=== PATIENT | female | born 1940 | race African-American/Black ===

== ENCOUNTER → 2017-10-19 15:42 | Outpatient (CLI) | payer MEDICARE, BC | END | disposition home or self-care (01) | LOC: D.MAMMO 11:45 | DX: Z12.31 Encounter for screening mammogram for malignant neoplasm of breast (principal) ==

== ENCOUNTER → 2018-12-12 13:23 | Outpatient (CLI) | payer MEDICARE, BC | END | disposition home or self-care (01) | LOC: D.RAD 13:23 | DX: R05 Cough (principal) ==

== ENCOUNTER → 2018-12-21 09:27 | Outpatient (CLI) | payer MEDICARE, BC | END | disposition home or self-care (01) | LOC: D.RAD 09:27 | DX: K22.70 Barrett's esophagus without dysplasia (principal) ==

== ENCOUNTER 2019-07-11 11:48 | Day surgery (SDC) | payer MEDICARE, BC ==
[~2019-07-11] VITALS: Ht 170.2 cm; Wt 72.7 kg
[2019-07-11 12:03] LABS: HEMATOCRIT 38.5 % (36.0-48.0); HEMOGLOBIN 12.9 g/dL (12-16); MCH 28.9 pg (26.0-34.0); MCHC 33.5 g/dL (31.0-37.0); MCV 86.1 fL (80.0-100.0); RBC 4.47 10x6/uL (4.00-5.40); RDW 15.2 % (11.5-14.5); WBC 3.7 10x3/uL (4.8-10.8)
[2019-07-11] MEDS ORDERED: ZOCOR20 MG PO (13:38)
[2019-07-11] MEDS ORDERED: COZAAR25 MG PO (13:38)
[2019-07-11] MEDS ORDERED: OMEPRAZOLE20 M1 PO (13:39)
[2019-07-11] MEDS ORDERED: NEURONTIN 300300 MG PO (13:39)
[2019-07-11] MEDS ORDERED: ARISTOCORT 0.5%15 GM TOPICAL (13:41)
[2019-07-11] MEDS ORDERED: PULMICORT0.25 MG/1 INH (13:41)
[2019-07-11] MEDS ORDERED: VITAMIN D31000 UNI2 PO (13:41)
[2019-07-11] MEDS ORDERED: OS-CAL500 MG PO (13:42)
[2019-07-11] MEDS ORDERED: XANAX XR0.5 MG PO (13:42)
[2019-07-11] MEDS ORDERED: ATARAX 25 MG TA25 MG PO (13:43)
[2019-07-11] MEDS ORDERED: FAMOTIDINE10 MG PO (13:44)
[2019-07-11] MEDS ORDERED: VALTREX500 MG PO (13:45)
[2019-07-11 13:46] VITALS: BP 178/84; Ht 170.2 cm; Wt 72.7 kg
--- NOTE | 2019-07-11 17:07 | NUR ---
1625 IV REMOVED DRESSING APPLIED AND PRESSURE HELD. INSTRUCTIONS AND RX GIVEN TO
--- NOTE | 2019-07-12 17:39 | OP ---
PATIENT NAME: JAMAL DOWD MEDICAL RECORD: [id number] LOCATION:D[facility] ADMISSION DATE: SURGEON: MICKEY PALMA DO DATE OF OPERATION: 07/11/2019 PROCEDURE: EGD with biopsies. INDICATIONS FOR PROCEDURE: History of lichen planus and Leroy esophagus. SCOPE: [employer] video gastroscope. MEDICATIONS: The patient was placed under general anesthesia and intubated for airway protection as she apparently had possibly aspirated during her last upper endoscopy. Please see anesthesia report. COMPLICATIONS: None. FINDINGS: Informed consent was given. The patient was sedated and intubated. The endoscope was then advanced under direct visualization through the mouth to the second portion of the duodenum with ease. In the upper and middle esophagus, there was evidence of Hailee. Cold forceps biopsies were taken from the midesophagus to rule out the presence of eosinophils. The endoscope was advanced down to the GE junction, where there was evidence of Leroy esophagus without obvious dysplasia. Random cold forceps biopsies were taken from the site. The endoscope was advanced beyond the GE junction into the stomach and retroflexed to view the cardia and fundus, which appeared normal. The entire stomach including the fundus, body, and antrum appeared normal. Random cold forceps biopsies were taken to submit for histopathology and to rule out the presence of H. pylori. The endoscope was advanced beyond the pylorus into the duodenum, which appeared normal down to the second portion. Random cold forceps biopsies were taken to submit for histopathology. The endoscope was withdrawn from the patient. The patient tolerated the procedure well, and there were no complications. IMPRESSION: 1. Candidal esophagitis. 2. 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 3. Otherwise normal endoscopy. PLAN AND RECOMMENDATIONS: 1. Discharge home when recovery parameters are met. 2. Follow up biopsy specimen results. 3. GERD diet and reflux precautions. 4. Increase omeprazole to 40 mg daily times 30 days. 5. We will treat candidal esophagitis with fluconazole times 1 week. 6. We will order a gastric emptying study to rule out gastroparesis as a cause of the patient's upper digestive symptoms. 7. We will order a right upper quadrant ultrasound to rule out the gallbladder as a cause of the patient's abdominal pain. 8. Consider PIPIDA if ultrasound is normal. 9. Follow up in GI clinic in 3 weeks. TRANSINT:[id number] Voice Confirmation ID: [id number] DOCUMENT ID: [id number] OPERATIVE REPORT [id number] JAMAL DOWD NATHAN A DO at 1739 CC: [id number] DICTATION DATE: 07/11/19 152 IMPORT DISPATCHER: 07/11/192042 [facility] [place] 07/11/19 [place] [id number] [place] [id number]
== END 2019-07-11 16:45 | disposition home or self-care (01) ==
LOC: D.OPS 11:48
PROVIDERS: Anesthesiology; ATTEND Internal Medicine Gastroenterology
DX: K22.70 Barrett's esophagus without dysplasia (principal); B37.81 Candidal esophagitis

== ENCOUNTER → 2019-08-15 09:28 | Outpatient (CLI) | payer MEDICARE, BC ==
[2019-07-11 13:46] VITALS: BMI 25.1
[~2019-08-15 09:28] MED LIST: ARISTOCORT 0.5%15 GM TOPICAL; ATARAX 25 MG TA25 MG PO; COZAAR25 MG PO; FAMOTIDINE10 MG PO; NEURONTIN 300300 MG PO; OMEPRAZOLE20 M1 PO; OS-CAL500 MG PO; PULMICORT0.25 MG/1 INH; VALTREX500 MG PO; VITAMIN D31000 UNI2 PO; XANAX XR0.5 MG PO; ZOCOR20 MG PO
== END | disposition home or self-care (01) ==
LOC: D.US 09:28 → D.NM 11:30
PROVIDERS: ATTEND Internal Medicine Gastroenterology
DX: R10.13 Epigastric pain (principal); K21.9 Gastro-esophageal reflux disease without esophagitis; R19.7 Diarrhea, unspecified; K44.9 Diaphragmatic hernia without obstruction or gangrene

== ENCOUNTER → 2019-08-30 07:48 | Outpatient (CLI) | payer MEDICARE, BC ==
[2019-07-11 13:46] VITALS: BMI 25.1
== END | disposition home or self-care (01) ==
LOC: D.NM 07:48
PROVIDERS: ATTEND Internal Medicine Gastroenterology
DX: R10.11 Right upper quadrant pain (principal); K80.80 Other cholelithiasis without obstruction

== ENCOUNTER 2019-10-08 08:00 | Outpatient (CLI) | payer MEDICARE, BC ==
[2019-07-11 13:46] VITALS: BMI 25.1
== END 2019-10-08 23:59 | disposition home or self-care (01) ==
LOC: D.MAMMO 08:00
PROVIDERS: ATTEND Family Medicine
DX: Z12.31 Encounter for screening mammogram for malignant neoplasm of breast (principal)